=== PATIENT | female | born 1965 | race Caucasian/White ===

== ENCOUNTER 2019-08-26 11:43 | Emergency (ER) | payer BC ==
[2019-08-26] MEDS ORDERED: Bacitracin Oint 1 GM U/D Packet TOP ONE (12:33)
--- NOTE | 2019-08-26 13:35 | EDM.PDOC ---
ED HPI GENERAL MEDICAL PROBLEM - General Chief Complaint: Laceration Stated Complaint: FALL/RT EAR INJURY Time Seen by Provider: 08/26/19 12:50 Source of Information: Reports: Patient History Limitations: Reports: No Limitations - History of Present Illness INITIAL COMMENTS - FREE TEXT/NARRATIVE: 54-year-old female presents to the emergency department with a laceration of the right earlobe. She sustained it when she fell between a boat and a dog. There were no other injuries. Tetanus is up-to-date. 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: Neurological History: Reports: Migraines - Past Surgical History Female Surgical History: Reports: D&C Social & Family History - Tobacco Use Smoking Status *Q: Never Smoker - Caffeine Use Caffeine Use: Reports: Coffee - Alcohol Use Days Per Week of Alcohol Use: 7 Number of Drinks Per Day: 2 Total Drinks Per Week: 14 - Recreational Drug Use Recreational Drug Use: No ED ROS GENERAL - Review of Systems Review Of Systems: See Below Constitutional: Reports: No Symptoms HEENT: Reports: Ear Pain Skin: Reports: Other (Laceration right earlobe) ED EXAM, SKIN/RASH Exam: See Below Exam Limited By: No Limitations General Appearance: Alert, WD/WN, No Apparent Distress Ears: Normal Canal, Normal TMs, Other (She has a through and through laceration of the right earlobe) Skin: Warm, Dry, Other (Through and through laceration right earlobe) ED SKIN PROCEDURES - Laceration/Wound Repair Right Ear Appearance: Superficial, Clean Anesthetic Type: Local Local Anesthesia - Lidocaine (Xylocaine): 1% Plain Local Anesthetic Volume: 2cc Skin Prep: Chlorhexidine (Hibiciens) Exploration/Debridement/Repair: Wound Explored Closed with: Sutures Lac/Wound length In cm: 3 Suture Size: 5-0 Suture Type: Other (Monocryl) # of Sutures: 7 Sterile Dressing Applied: Nurse Tetanus Status Addressed: Yes Complications: No Course - Vital Signs Text/Narrative:: This patient has a laceration of the right earlobe. Was repaired with Monocryl sutures. These are dissolvable. She will follow-up with her doctor as needed. To watch for signs of secondary infection. Tetanus is up-to-date. She will return here as needed. Last Recorded V/S: Last Vital Signs Temp 36.1 C 08/26/19 12:14 Pulse 58 L 08/26/19 12:14 Resp 13 08/26/19 12:14 BP 144/86 H 08/26/19 12:14 Pulse Ox 99 08/26/19 12:14 - Orders/Labs/Meds Meds: Medications Discontinued Medications Generic Name Dose Route Start Last Admin Trade Name Kaushal PRN Reason Stop Dose Admin Bacitracin 1 dose 08/26/19 12:33 Bacitracin Oint 1 Gm TOP 08/26/19 12:34 ONETIME ONE Lidocaine HCl 5 ml 08/26/19 12:33 Xylocaine-Mpf 1% INJECT 08/26/19 12:34 ONETIME ONE Departure - Departure Time of Disposition: 13:36 Disposition: Home, Self-Care 01 Condition: Good Clinical Impression: Laceration - Discharge Information *PRESCRIPTION DRUG MONITORING PROGRAM REVIEWED*: No *COPY OF PRESCRIPTION DRUG MONITORING REPORT IN PATIENT JOSE JUAN: No Referrals: PCP,None [Primary Care Provider] - Additional Instructions: Keep the wound clean and covered with antibiotic ointment. Follow-up with your doctor as needed. Return here as needed. Sepsis Event Note (ED) - Evaluation Sepsis Screening Result: No Definite Risk - Focused Exam Vital Signs: Vital Signs Temp Pulse Resp BP Pulse Ox 08/26/19 12:14 36.1 C 58 L 13 144/86 H 99 08/26/19 12:12 36.1 C 58 L 13 144/86 H 99
== END 2019-08-26 13:51 | disposition home or self-care (01) ==
LOC: JP.ED 11:43
DX: S01.311A Laceration without foreign body of right ear, initial encounter (principal); G43.909 Migraine, unspecified, not intractable, without status migrainosus; Z79.899 Other long term (current) drug therapy; W19.XXXA Unspecified fall, initial encounter
CPT/HCPCS: 12013; 99282; J2001